=== PATIENT | male | born 2000 | race Caucasian/White ===

== ENCOUNTER 2021-03-15 09:20 | Emergency (ER) | payer MEDICAID, OTHER ==
[2021-03-15 09:35] VITALS: BP 137/78; PULSE 83
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
== END 2021-03-15 11:37 | disposition home or self-care (01) ==
LOC: JP.ED 09:20
DX: S02.2XXA Fracture of nasal bones, initial encounter for closed fracture (principal); Z72.0 Tobacco use; Y04.0XXA Assault by unarmed brawl or fight, initial encounter
CPT/HCPCS: 70450; 70486; 73030-26-RT; 73030-RT; 99283; 99284-25